=== PATIENT | female | born 2000 | race African-American/Black ===

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

== ENCOUNTER 2022-01-20 19:32 | Emergency (ER) | payer BC, MEDICAID, SELFPAY ==
--- NOTE | ~2022-01-20 | XR_ITS ---
EXAMINATION: XR chest 2V DATE: 01/20/2022 22:39 INDICATION: Shortness of breath TECHNIQUE: PA and lateral views of the chest are obtained. COMPARISON: None available FINDINGS: The lungs are free of acute opacities. No pleural effusion or pneumothorax. The cardiomedia stinal silhouette is normal. The visualized bones and soft tissues are unremarkable. IMPRESSION: 1. No acute cardiopulmonary abnormality. Reviewed, dictated and finalized at location F. TESY CLERK
--- NOTE | ~2022-01-20 | CT_ITS ---
EXAMINATION: CTA chest PE abdomen pel DATE: 01/21/2022 00:42 INDICATION: Shortness of breath. Chest pain. TECHNIQUE: Computed tomography angiography (CTA) of the chest was performed with 100 mL Omnipaque-350 intravenous contrast timed to evaluate the pulmonary arteries. Coronal maximum intensity projection 3D-reconstructions were created by the technologist. Computed tomography (CT) of the abdomen and pelv is was performed with intravenous contrast. Automated exposure control and iterative reconstruction t echnique were employed. The dose-length product was 323.31 mGy-cm. COMPARISON: Chest 2 views 01/20/2022 FINDINGS: CTA chest: There is no pneumonia or pleural effusion. The heart size is normal. No pericardial effusi on. There is no pulmonary embolus. CT abdomen and pelvis: The liver, gallbladder, spleen, pancreas, adrenal glands, and kidneys are norm al. There are no dilated loops of bowel. The appendix is not visualized. There are no pathologically enlarged lymph nodes. There is no free intraperitoneal fluid. There is a 4.0 x 1.8 cm cyst in the lef t vulva. The bones are unremarkable. IMPRESSION: 1. No pulmonary embolus. 2. 4.0 x 1.8 cm cyst in the left vulva, which may be a Bartholin cyst. Reviewed, dictated and finalized at location A. [employer]
[2022-01-20 19:49] VITALS: BP 100/46; PULSE 85; RESP 20; TEMP 37; O2SAT 100
--- NOTE | 2022-01-20 19:49 | ECG_ITS ---
Measurements Intervals [place] Rate: 84 P: 66 [place]: 179 QRS: 89 QRSD: 84 T: 69 QT: 349 QTc: 414 Interpretive Statements SINUS RHYTHM WITH SINUS ARRHYTHMIA NONSPECIFIC T-WAVE ABNORMALITY- ANTERIOR LEADS BASELINE WANDER- II, III, V5-V6 BORDERLINE ECG NO PREVIOUS ECG AVAILABLE FOR COMPARISON Electronically Signed On 01-20-2022 20:47:27 PATIENT MANAGER by Chandelr Vargas D.O.
[2022-01-20 20:12] LABS: Basophils Percent Auto 0.3 % (0.2-1.2); Eosinophils Percent Auto 0.1 % (0-4.4); Hematocrit 34.5 % (37.0-47.0); Hemoglobin 12.1 g/dL (12.0-15.0); Immature Granulocyte Absolute 0.02 K/mm3 (0.00-0.031); Immature Granulocyte Percent A 0.3 % (0-0.5); Lymphocytes Absolute Auto 1.21 K/mm3 (0.9-3.2); Mean Corpuscular HGB Conc 35.1 g/dl (32-36); Mean Corpuscular Hemoglobin 33.2 pg (26-34); Mean Corpuscular Volume 94.5 fl (80-100); Mean Platelet Volume 9.4 fl (7.4-10.4); Monocytes Absolute Auto 0.4 K/mm3 (0.1-0.6); Monocytes Percent Auto 5.7 % (2.6-8.5); Neutrophils Absolute Auto 5.1 K/mm3 (1.3-6.7); Neutrophils Percent Auto 75.6 % (45.5-73.1); Platelet Count Result 280 k/mm3 (150-375); Red Blood Count 3.65 M/mm3 (4.2-5.4); Red Cell Distribution Width 11.7 % (11.5-14.5); White Blood Count 6.7 K/mm3 (4.5-10.0)
[2022-01-20 20:23] LABS: Alanine Aminotransferase 14 U/L (6-35); Albumin Level 4.7 g/dL (3.7-5.6); Alkaline Phosphatase 76 U/L (45-116); Anion Gap 13 mmol/L (8-16); Aspartate Amino Transferase 28 U/L (14-36); Bilirubin,Total 0.7 mg/dL (0.2-1.3); Blood Urea Nitrogen 8 mg/dL (8-21); Calcium 9.8 mg/dL (8.9-10.7); Carbon Dioxide 25 mmol/L (22-30); Chloride 102 mmol/L (98-107); Estimated Glomerular Filt Rate > 60; Glucose 100 mg/dL (65-110); Potassium 3.1 mmol/L (3.4-5.0); Sodium 140 mmol/L (134-143)
[2022-01-20 20:36] LABS: INR 1.2; Prothrombin Time 14.7 Seconds (11.1-14.7)
[2022-01-20 20:37] LABS: Partial Thromboplastin Time 30.9 SECONDS (22.3-36.8)
[2022-01-20 20:40] LABS: Lipase 41 U/L (23-300)
--- NOTE | 2022-01-20 22:46 | ED.ABDPAIN ---
HPI - Abdominal Pain General Chief Complaint: Abdominal Pain Stated Complaint: abdominal pain, SOB, possible syncopal episode Time Seen by Provider: 01/20/22 22:23 History of Present Illness HPI narrative: Patient is a 21-year-old female here for evaluation of right upper quadrant abdominal pain for the past 3 days. Patient states the pain is aching in nature and is worse with deep breaths. Denies relation to meals. Additionally notes nausea but no vomiting. No fevers, chills, constipation, diarrhea, chest pain, leg swelling, vaginal discharge. No history of abdominal surgeries. Patient has not attempted any medication prior to arrival. Does note dysuria for past several days. Related Data Allergies Allergy/AdvReac Type Severity Reaction Status Date / Time No Known Allergies Allergy Verified 06/19/20 10:49 Review of Systems Review of Systems: Gen: Denies fevers or chills Eyes: Denies eye pain or visual change ENT: Denies congestion Respiratory: Reports shortness of breath. CV: Denies chest pain or palpitations GI: Reports abdominal pain and nausea. Denies emesis or diarrhea : reports dysuria. denies urgency, frequency or hematuria Musculoskeletal: Denies back pain or muscle pain Neuro: Denies numbness, tingling, weakness or focal weakness Skin: Denies rash Except as documented, all other systems reviewed and negative [facility] Past Medical History Medical History Asthma Migraines Surgical History Surgical History No history of previous surgery Family History Family History Grandparent Heart disease Hypertension Elevated cholesterol Diabetes mellitus Asthma Father Hypertension Elevated cholesterol Social History Social History Smoking status: Never smoker Alcohol intake: never Substance use: never Gender identity (if verbalized by the patient): Female Exam Narrative: APPEARANCE: Uncomfortable appearing. Head: Normocephalic and atraumatic. EYES: PERRLA/EOMI, conjunctivae clear NOSE: No nasal drainage EARS: External ear normal in appearance THROAT: Oropharynx is clear. Mucous membranes are moist. NECK: Supple. No adenopathy, no masses. RESPIRATORY: Airway patent, respirations nonlabored. Clear to auscultation bilaterally, no rales, rhonchi, wheezing. CARDIOVASCULAR: Regular rate and rhythm without murmurs, rubs, or gallops. ABDOMINAL: Slighlty tender to palpation in right upper quadrant. Normoactive bowel sounds. Soft, nondistended. No rebound tenderness or guarding. MUSCULOSKELETAL: Extremities are warm and well-perfused. Moves all extremities well. No edema. NEURO: Normal speech. No focal neurologic deficits. SKIN: Skin is warm and dry. No rashes. PSYCHIATRIC: Normal affect/mood. Course Vital Signs Vital signs: Vital Signs Temperature 98.6 F 01/20/22 19:49 Pulse Rate 85 01/20/22 19:49 Respiratory Rate 20 01/20/22 19:49 Blood Pressure 100/46 L 01/20/22 19:49 Pulse Oximetry 100 01/20/22 19:49 Oxygen Delivery Room Air 01/20/22 19:49 Temperature 98.6 F 01/20/22 19:49 Pulse Rate 85 01/20/22 19:49 Respiratory Rate 20 01/20/22 19:49 Blood Pressure 100/46 L 01/20/22 19:49 Pulse Oximetry 100 01/20/22 19:49 Oxygen Delivery Room Air 01/20/22 19:49 MDM - Abdominal Pain MDM Narrative Medical decision making narrative: 21 year old female here for evaluation of RUQ pain that she states is making her short of breath, because breaths make the pain worse. She is uncomfortable appearing but non-toxic and is tender in the RUQ. Heart and lungs CTAB. Workup significant for elevated d-dimer; CTA PE study is negative for acute PE. She is not complaining of leg pain or swelling to suggest DVT. Abd pelvis STAT rad read with no acute
[2022-01-20] MEDS: POTASSIUM CHLORIDE 20 MEQ TABLET 40 MEQ PO (22:51)
[2022-01-20 23:08] LABS: Troponin I < 0.012 ng/mL (0.000-0.034)
[2022-01-20 23:13] LABS: D Dimer 2.57 ug/mL (<0.48)
[2022-01-20 23:18] LABS: Appearance Urine Cloudy (Clear); Bilirubin Urine 1+ (Negative); Blood Urine Negative (Negative); Color Urine Yellow (Yellow); Glucose Urine UA Negative (Negative); Ketones Urine 4+ mg/dL (Negative); Leukocyte Esterase Ur 2+ LEU/UL (Negative); Nitrate Urine Negative (Negative); Protein Urine 1+ mg/dL (Negative); Specific Grav Ur 1.015 (1.001-1.035); Urobilinogen Urine 0.2 mg/dL (<2.0); pH Urine 7.5 (5.0-9.0)
[2022-01-20 23:19] LABS: Influenza A QL RT-PCR Negative (Negative); Influenza B QL RT-PCR Negative (Negative); SARS-CoV-2 RNA PCR Negative
[2022-01-20 23:25] LABS: Add Urine Microscopic? YES; Bacteria Urine 3+ /hpf; Mucus Urine Rare /lpf; Squamous Epithelial Cell Urine Many /hpf (Few); Transitional Epi Cells Urine Rare /hpf (None Seen); WBC Clumps Urine Present /HPF; WBC Urine 51-75 /hpf
[2022-01-20] MEDS: SODIUM CHLORIDE 0.9% IV 1,000 ML 999 ML IV CONT (23:57)
[2022-01-20] MEDS: MORPHINE SULFATE (*CRX) 4 MG/ML INJ IV PUSH (23:57)
[2022-01-20] MEDS: ONDANSETRON INJ 4 MG/2 ML VIAL IV PUSH (23:57)
== END 2022-01-21 04:31 | disposition home or self-care (01) ==
PROVIDERS: Emergency Medicine; Physician Assistant; Emergency Provider Emergency Medicine
DX: R10.11 Right upper quadrant pain (principal); Z20.822 Contact with and (suspected) exposure to COVID-19; J45.909 Unspecified asthma, uncomplicated
CPT/HCPCS: 36415; 71046; 71275; 74177; 80053; 81001; 81025; 83690; 84484; 85025; 85380; 85610; 85730; 87077; 87086; 87186; 87636; 93005; 96361; 96374; 96375; 99284; A9270; J0696; J2270; J2405; J7030; Q9967